=== PATIENT | male | born 1970 | race Caucasian/White ===

== ENCOUNTER → 2020-05-11 11:11 | Outpatient (BNVA) | payer BC, SELFPAY | PROVIDERS: PCP Nurse Practitioner Family; Visit Provider Nurse Practitioner Family | DX: Z20.828 Contact with and (suspected) exposure to other viral communicable diseases (principal); J06.9 Acute upper respiratory infection, unspecified | CPT/HCPCS: 87635 ==

== ENCOUNTER → 2021-03-31 09:44 | Outpatient (BNVA) | payer OTHER, SELFPAY | PROVIDERS: PCP Nurse Practitioner Family; Visit Provider Nurse Practitioner Family | DX: R10.9 Unspecified abdominal pain (principal); K59.00 Constipation, unspecified; R10.31 Right lower quadrant pain | CPT/HCPCS: 74018; 80053; 81000; 84153; 85025 ==

== ENCOUNTER 2021-04-16 13:24 | Outpatient (CLI) | payer OTHER, SELFPAY ==
--- NOTE | 2021-04-16 13:34 | CT_ITS ---
WS: [id number] CT scan of the abdomen and pelvis with Oral and IV contrast. Additional two-dimensional coronal and s agittal reconstruction was performed. 04/16/2021 Clinical Data: R10.31 - Right lower quadrant pain Comparison: None. DLP: 1080.[address] scans at [facility] use at least one of these dose optimization techniques: automated e xposure control; mA and/or kV adjustment per patient size (includes targeted exams where dose is matc hed to clinical indication); or iterative reconstruction. Findings: The lower lungs show no nodules, masses or effusions. The liver, gallbladder, spleen, adrenal glands and pancreas are normal. The kidneys show equal bilateral contrast excretion with small bilateral cortical cysts. No hydroneph rosis, masses or renal calculi are seen. The abdominal aorta is normal in size. No appendicitis or diverticulitis is seen. Oral contrast is in the stomach and small bowel and there is no bowel dilatation. No abscess, adenopathy, ascites, mass, obstruction or free air is seen. The bladder is unremarkable. The prostate is slightly enlarged. No inguinal hernia is seen. The bones of the lower thorax, lumbar spine, pelvis, and hips are normal. CT/CT abdomen pelvis w con* [id number] Impression: Negative for acute intra-abdominal or pelvic abnormalities.
[2021-04-16] MEDS: iohexol 300 mg/mL 50 mL Btl PO (14:04)
[2021-04-16] MEDS: iohexol 300 mg/mL 100 mL Btl IV (15:08)
== END 2021-04-16 13:25 | disposition home or self-care (01) ==
PROVIDERS: PCP Nurse Practitioner Family; Visit Provider Nurse Practitioner Family
DX: R10.31 Right lower quadrant pain (principal); K59.00 Constipation, unspecified
CPT/HCPCS: 74177; Q9967

== ENCOUNTER → 2021-06-03 09:01 | Outpatient (BNVA) | payer OTHER, SELFPAY | PROVIDERS: PCP Nurse Practitioner Family; Visit Provider Surgery | DX: Z11.52 Encounter for screening for COVID-19 (principal) | CPT/HCPCS: 87635 ==

== ENCOUNTER 2021-06-10 07:44 | Day surgery (SDC) | payer OTHER, SELFPAY ==
[2021-06-08 10:38] VITALS: BMI 32.2
--- NOTE | 2021-06-10 07:58 | ANES.PREANE2 ---
Pre-Anesthetic Assessment Pre-Anesthetic Assessment: Height/Weight: Height 1.73 m Weight 96.162 kg Preop Diagnosis: Abdominal pain Proposed Procedure: Operation Date: 06/10/21 09:00 Proposed Procedures p EGD/Colon 56605 R19.4(Not Applicable) - Ata Polanco MD s Colonoscopy 08758 R19.4(Not Applicable) - Ata Polanco MD Familial anesthetic complications: None Was Beta Oksana taken within 24 hours: N/A Was Clonidine taken within 24 hours: N/A Last intake: > 8 hrs Social: Social History: No alcohol and No tobacco Exam: Pre-Anes Outpt Exam: alert, oriented x 3, clear to auscultation bilaterally and regular rate & rhythm Airway: MP: 2 Dentition: Chipped GI: GI: GERD Anesthetic Plan: ASA status: 1 Anesthesia: MAC Risk of > 500 ml blood loss (7ml/kg in children): No PFSH Anesthesia PFSH: Medical History Hx of sleep apnea Surgical History History of colonoscopy History of foot surgery History of tonsillectomy Hx of appendectomy Family History Grandmother Cancer Colon Social History Smoking and tobacco status: never smoked Alcohol intake: never Adopted: No Caregiver/support person: No Lives independently: Yes Household members: spouse Housing: House Marital status: Number of children: 4 Highest education level completed: Some College, No Degree service: No Current occupational status: employed History of recent travel: No Data Anesthesia Cardiac Studies: No Data to Display
[2021-06-10 08:32] VITALS: BP 123/74; PULSE 72; RESP 16; TEMP 36.6; O2SAT 95
[2021-06-10] MEDS: sodium chloride 0.9% 1,000 ML 30 ML IV (08:41)
--- NOTE | 2021-06-10 09:26 | P.HP_ITS ---
Same Day Surgery H&P Indication for Procedure/HPI DATE OF PROCEDURE: June 10, 2021 CHIEF COMPLAINT/INDICATIONFOR SURGICAL PROCEDURE: egd/colonoscopy for abdominal pain PREOP DIAGNOSIS: Abdominal pain PLANNED PROCEDRUE: Operation Date: 06/10/21 09:00 Proposed Procedures p EGD/Colon 30633 R19.4(Not Applicable) - Ata Polanco MD s Colonoscopy 80350 R19.4(Not Applicable) - Ata Polanco MD Medications/Allergies* Allergies/Adverse Reactions Allergy/AdvReac Type Severity Reaction Status Date / Time No Known Allergies Allergy Unverified 06/08/21 10:39 Current Medications: Generic Name Dose Route Start Last Admin Trade Name Freq PRN Reason Stop Dose Admin Sodium Chloride 1,000 mls @ 30 mls/hr 06/10/21 08:00 06/10/21 08:41 Sodium Chloride 0.9% IV 06/11/21 07:59 30 mls/hr .Q24H YOLANDA Administration Pertinent History/Comorbid Conditions* Medical History (Updated 04/06/21 @ 15:33 by Ata Polanco MD) Hx of sleep apnea Surgical History (Updated 04/06/21 @ 15:33 by Ata Polanco MD) History of colonoscopy History of foot surgery History of tonsillectomy Hx of appendectomy Family History (Updated 03/31/21 @ 09:17 by Meggan Vera LPN) Cancer Grandmother Colon Social History Smoking and tobacco status: never smoked Alcohol intake: never Adopted: No Caregiver/support person: No Lives independently: Yes Household members: spouse Housing: House Marital status: Number of children: 4 Highest education level completed: Some College, No Degree service: No Current occupational status: employed History of recent travel: No Pertinent Exam Findings alert, oriented x 3 and regular rate & rhythm Recommendations Surgery/Procedure today Coding Level of Care Code Acute Medical Office Technician for Chris Gusman
[2021-06-10 10:01] VITALS: BP 101/67; PULSE 95; RESP 16; TEMP 36.1; O2SAT 92
--- NOTE | 2021-06-10 10:04 | ANE.PACU2 ---
Inpatient post-anesthesia follow up: Airway intact: Yes Vital signs: Temperature 97.0 F Pulse Rate 95 Respiratory Rate 16 Blood Pressure 101/67 Pulse Oximetry 92 Oxygen Delivery Me thod Nasal Cannula Oxygen Flow Rate 3 Fraction of Inspir ed Oxygen Hydration adequate: Yes Nausea and vomiting: No Pain level: 1 Mental status: Baseline
[2021-06-10 10:10] VITALS: BP 102/76; PULSE 66; RESP 16; O2SAT 93
== END 2021-06-10 10:30 | disposition home or self-care (01) ==
PROVIDERS: PCP Nurse Practitioner Family; Visit Provider Surgery
PROC: 0DJ08ZZ Inspection of Upper Intestinal Tract, Via Natural or Artificial Opening Endoscopic (ICD-10-PCS; CPT 43235; principal; 2021-06-10 09:00)
PROC: 0DJD8ZZ Inspection of Lower Intestinal Tract, Via Natural or Artificial Opening Endoscopic (ICD-10-PCS; CPT 45378; 2021-06-10 09:00)
DX: R19.4 Change in bowel habit (principal); K29.80 Duodenitis without bleeding; K44.9 Diaphragmatic hernia without obstruction or gangrene; K57.30 Diverticulosis of large intestine without perforation or abscess without bleeding; K64.8 Other hemorrhoids; K21.9 Gastro-esophageal reflux disease without esophagitis
CPT/HCPCS: 43239; 45378; 88305; 96360; J2704; J7030

== ENCOUNTER → 2023-04-12 14:28 | Outpatient (BNVA) | payer OTHER, SELFPAY | PROVIDERS: PCP Nurse Practitioner Family; Visit Provider Nurse Practitioner Family | DX: R05.9 Cough, unspecified (principal); R06.09 Other forms of dyspnea | CPT/HCPCS: 71046 ==